=== PATIENT | female | born 1945 | race Caucasian/White ===

== ENCOUNTER → 2017-06-04 | Outpatient (CLI) | payer MEDICARE, OTHER ==
--- NOTE | 2017-06-05 17:20 | RADIOLOGY IMAGING REPORT ---
FACILITY: [facility] - [place] PATIENT NAME: FRANCK SAMUELS : [id number] MR: [id number] V: [id number] EXAM DATE: [id number] ORDERING PHYSICIAN: MONTEZ CURIEL TECHNOLOGIST: Tammy Mendoza EXAMINATION:TWO-DIMENSIONAL ECHOCARDIOGRAPH REASON:MURMUR 2D Measurements (normal values in centimeters) LV endLV endRV endVent.LV PostAorticLeftPercent DiastolicSystolicDiastolicSeptumWallRootAtriumShortening (3.5-5.7)(0.9-2.6)(0.6-1.1)(0.6-1.1)(2.0-3.7)(1.9-4.0)(25-35%) [id number]% STROKE VOLUME: 51ml ESTIMATED EJECTION FRACTION: 60% PARASTERNAL LONG AXIS: Overall left ventricular systolic function appears to be normal. Mild mitral annular calcification and mild sclerosis of the aortic valve. Neither of these valves appears to be stenotic. Right ventricle appears to be mildly enlarged. The other chamber sizes appear to be normal in size. No wall motion abnormalities are noted. Color examination of the valves reveals a trace of mitral and tricuspid insufficiency in this view. PARASTERNAL SHORT AXIS: Overall left ventricular function appears to be normal. The aortic valve is trileaflet in configuration with minimal aortic sclerosis but no stenosis. Color examination of the aortic valve was unremarkable. APICAL FOUR AND TWO CHAMBER: Normal left ventricular ejection fraction. The right ventricle is mildly enlarged. The right atrium is the upper range of normal in size with the right atrial volume measuring 28ml/m2. Left atrial volume is measured within normal range of 25ml/m2. The aortic valve area and mitral valve area both measure within normal ranges of 2cm2 respectively. Tricuspid regurgitation Vmax measured 2.69m/sec. Trace of mitral and tricuspid insufficiency is noted. SUBCOSTAL VIEW: No pericardial effusion was noted. No atrioseptal or ventriculoseptal defects were noted. Doppler examination of the mitral valve in diastole does reveal the A wave > E wave suggesting mild decrease in diastolic function. IVC is mildly enlarged at 2.36cm. Strain measurements were all recorded within normal ranges. OVERALL IMPRESSION: 1. Normal left ventricular ejection fraction of 60% with a mild Grade 1 decrease in diastolic function. 2. Right atrium is borderline enlarged. The right ventricle is mildly enlarged. 3. A trileaflet aortic valve with mild aortic sclerosis but no stenosis and no insufficiency was noted. 4. A trace of mitral and tricuspid insufficiency with mild mitral annular calcification but no stenosis of any of the valves. 5. Right ventricular systolic pressure is mildly increased at 37mm Hg which does include an estimated right atrial pressure of 8mm Hg which is mildly elevated. 6. In comparison to the examination done on 08/31/2012. Right sided heart chambers have gotten mildly enlarged. The right ventricular and pulmonary pressures have also increased from 24 to 37mm Hg which is mildly elevated at this time. No other changes were noted. Dictated by: Mark Campos M.D. on 06/05/2017 at 10:48 Transcribed by: VICK on 06/05/2017 at 15:38 Approved by: Mark Campos M.D. on 06/05/2017 at 17:19 [facility]
== END ==
LOC: US 01:26
PROVIDERS: ATTEND Nurse Practitioner Psychiatric/Mental Health
DX: I07.1 Rheumatic tricuspid insufficiency (principal); I34.0 Nonrheumatic mitral (valve) insufficiency
CPT/HCPCS: 93306

== ENCOUNTER → 2018-05-27 | Outpatient (CLI) | payer MEDICARE, OTHER | LOC: US 00:44 | PROVIDERS: ATTEND Internal Medicine Cardiovascular Disease | DX: I35.0 Nonrheumatic aortic (valve) stenosis (principal) | CPT/HCPCS: 93306 ==